=== PATIENT | male | born 1980 | race Two or more races ===

== ENCOUNTER → 2022-04-29 | Outpatient (CLI) | payer BC ==
[2022-04-29 12:24] LABS: BASO # 0.1 10^3/uL (0.0-0.2); BASO % 0.5 % (0.0-1.0); EOS # 0.3 10^3/uL (0.0-0.5); EOS % 2.8 % (0.0-3.0); HEMATOCRIT 47.1 % (42.0-52.0); LYMPH # 2.7 10^3/uL (1.5-5.0); LYMPH % 24.3 % (24.0-44.0); MEAN CORPUSCULAR HEMOGLOBIN 31.1 pg (27.0-33.0); MEAN CORPUSCULAR VOLUME 91.5 fl (80.0-96.0); MONO # 1.1 10^3/uL (0.0-0.8); NEUTROPHILS # 6.9 10^3/uL (1.5-8.5); PLATELET COUNT, AUTOMATED 174 10^3/uL (150-450); RED BLOOD COUNT 5.15 10^6/uL (4.30-6.10); WHITE BLOOD COUNT 11.1 10^3/uL (4.0-10.0)
[2022-04-29 12:52] LABS: ALBUMIN 3.9 G/DL (3.2-5.2); ALKALINE PHOSPHATASE 44 U/L (46-116); ALT/SGPT 45 U/L (7.0-40); AST/SGOT 21 U/L (<34); BILIRUBIN,TOTAL 0.5 MG/DL (0.3-1.2); BLOOD UREA NITROGEN 17 MG/DL (9-23); CALCIUM LEVEL 9.1 MG/DL (8.5-10.1); CARBON DIOXIDE LEVEL 24 MMOL/L (20-31); CHLORIDE LEVEL 106 MMOL/L (98-107); CHOLESTEROL LEVEL 139 MG/DL (<200); CHOLESTEROL RISK RATIO 3.65 (<5); CREATININE FOR GFR 1.15 MG/DL (0.70-1.30); GLOMERULAR FILTRATION RATE > 60.0 (>60); GLUCOSE, FASTING 85 MG/DL (60-100); LDL CHOLESTEROL 81.6 MG/DL (<100); NON-HDL-C 101 MG/DL; POTASSIUM SERUM 4.5 MMOL/L (3.5-5.1); SODIUM LEVEL 137 MMOL/L (136-145); THYROID STIMULATING HORMONE 1.455 uIU/ML (0.55-4.78); TOTAL PROTEIN 6.8 G/DL (5.7-8.2); TRIGLYCERIDES LEVEL 97 MG/DL (<150)
== END ==
LOC: M LAB 11:31
PROVIDERS: ATTEND Pediatrics
DX: E66.01 Morbid (severe) obesity due to excess calories (principal); E55.9 Vitamin D deficiency, unspecified

== ENCOUNTER 2022-06-17 09:49 | Emergency (ER) | payer BC ==
[~2022-06-17] VITALS: Ht 172.7 cm; Wt 133.8 kg
[2022-06-17] MEDS ORDERED: KETOROLAC 30 MG/ML 1ML VIAL IV ONE (11:35)
[2022-06-17 12:20] LABS: BASO # 0.1 10^3/uL (0.0-0.2); BASO % 0.5 % (0.0-1.0); EOS # 0.3 10^3/uL (0.0-0.5); EOS % 2.4 % (0.0-3.0); HEMOGLOBIN 17.3 g/dl (13.5-17.5); LYMPH # 2.9 10^3/uL (1.5-5.0); LYMPH % 23.7 % (24.0-44.0); MEAN CORPUSCULAR HEMOGLOBIN 31.9 pg (27.0-33.0); MEAN CORPUSCULAR HGB CONC 33.9 g/dl (32.0-36.5); MEAN CORPUSCULAR VOLUME 93.9 fl (80.0-96.0); MONO # 1.3 10^3/uL (0.0-0.8); MONO % 10.6 % (2.0-8.0); NEUTROPHILS # 7.7 10^3/uL (1.5-8.5); NEUTROPHILS % 62.4 % (36.0-66.0); PLATELET COUNT, AUTOMATED 226 10^3/uL (150-450); RED BLOOD COUNT 5.43 10^6/uL (4.30-6.10); WHITE BLOOD COUNT 12.3 10^3/uL (4.0-10.0)
[2022-06-17 12:31] LABS: INR 0.98; PROTHROMBIN TIME 13.2 SECONDS (12.5-14.5)
[2022-06-17 12:45] LABS: ALBUMIN 4.2 G/DL (3.2-5.2); ALKALINE PHOSPHATASE 42 U/L (46-116); ALT/SGPT 30 U/L (7.0-40); AST/SGOT 22 U/L (<34); BILIRUBIN,DIRECT 0.2 MG/DL (<0.4); BILIRUBIN,TOTAL 0.5 MG/DL (0.3-1.2); BLOOD UREA NITROGEN 17 MG/DL (9-23); CALCIUM LEVEL 9.8 MG/DL (8.5-10.1); CARBON DIOXIDE LEVEL 28 MMOL/L (20-31); CHLORIDE LEVEL 105 MMOL/L (98-107); CREATININE FOR GFR 1.04 MG/DL (0.70-1.30); GLOMERULAR FILTRATION RATE > 60.0 (>60); GLUCOSE, FASTING 88 MG/DL (60-100); SODIUM LEVEL 138 MMOL/L (136-145); TOTAL PROTEIN 7.2 G/DL (5.7-8.2)
[2022-06-17] MEDS ORDERED: CIPR-249 PO (13:29)
[2022-06-17] MEDS ORDERED: PYRI1TAB5 PO (13:29)
[2022-06-17 13:40] VITALS: BP 132/73
[2022-06-17 16:02] LABS: GC DNA AMPLIFICATION NEGATIVE (NEGATIVE)
== END 2022-06-17 13:41 | disposition home or self-care (01) ==
LOC: M ED 09:49
DX: N30.91 Cystitis, unspecified with hematuria (principal); Z87.442 Personal history of urinary calculi; Z79.2 Long term (current) use of antibiotics
CPT/HCPCS: 74176; 80048; 80076; 81000; 81015; 85025; 85610; 86780; 87086; 87661; 87810; 87850; 96374; 99284; J1885